=== PATIENT | male | born 1980 | race Caucasian/White ===

== ENCOUNTER → 2019-12-05 | Outpatient (CLI) | payer OTHER ==
--- NOTE | 2019-12-05 08:49 | CT ---
EXAMINATION TYPE: CT iac wo con, CT facial bones wo con DATE OF EXAM: 12/05/2019 COMPARISON: None HISTORY: bilateral hearing loss (accession [id number]), sinusitis (accession [id number]) CT DLP: 720.6mGycm Automated exposure control for dose reduction was used. Helical imaging through the facial bones and internal auditory canals, coronal reconstructions FINDINGS: Lack of intravenous contrast could compromise sensitivity. At the level of the internal aud itory canal, right cerebellar pontine angle, axial image 30 question some asymmetric increased attenu ation. The external auditory canals are patent bilaterally. Mastoid air cells show no evidence of ab normal opacification bilaterally. The middle ear ossicles are symmetric and unremarkable. There is no evidence of suspicious surrounding soft tissue density to suggest cholesteatoma. The scutum is pr eserved bilaterally. The cochlea and the semicircular canals are symmetric and unremarkable. Vestib ular aqueduct and internal carotid canal appear unremarkable. Temporomandibular joints are maintaine d bilaterally. The inferior most portion of the right maxillary sinus shows a small amount of inflammatory change an d there is mucoperiosteal thickening present in the right maxillary sinus,, there may be a small muco us retention cyst. Dental amalgam causes streak artifact over portions of the exam. Orbits show symme tric appearance. IMPRESSION: Contrast-enhanced exam, MRI of the internal auditory canals is more sensitive to assess f or possible mass in the internal auditory canal on the right. Mild sinus disease.
== END | disposition home or self-care (01) ==
LOC: RADCTMAIN 07:00
PROVIDERS: ATTEND Otolaryngology Facial Plastic Surgery
DX: J32.9 Chronic sinusitis, unspecified (principal); H91.93 Unspecified hearing loss, bilateral
CPT/HCPCS: 70480; 70486

== ENCOUNTER → 2022-05-24 | Outpatient (CLI) | payer OTHER ==
--- NOTE | 2022-05-25 03:02 | MR ---
EXAMINATION TYPE: MR wrist LT wo con DATE OF EXAM: 05/24/2022 COMPARISON: None HISTORY: Left wrist pain near volar unlar styloid. Multiplanar multiecho imaging of the left wrist performed with no contrast. There is some increased joint fluid in the carpus. There is mild narrowing of the radiocarpal joint s pace. The carpal bones are intact. No evidence of avascular necrosis. The triangular cartilage appear s intact. The flexor and extensor tendons appear intact. The radial and ulnar collateral ligaments ap pear intact. IMPRESSION: There is some increased carpal joint fluid and consistent with some nonspecific synovitis. No fractur e seen. No evidence of ligament tear.
== END | disposition home or self-care (01) ==
LOC: RADMRIMAIN 07:30
PROVIDERS: ATTEND Internal Medicine Rheumatology
DX: M25.532 Pain in left wrist (principal); M25.531 Pain in right wrist

== ENCOUNTER → 2022-06-24 | Outpatient (CLI) | payer OTHER ==
[2022-06-25 06:10] LABS: Gliadin AB IgA, Deaminated NEGATIVE (NEGATIVE); Gliadin AB IgA, Unit 0.3 U/mL; Gliadin AB IgG, Deaminated NEGATIVE (NEGATIVE); Gliadin AB IgG, Unit <0.4 U/mL
[2022-06-25 08:32] LABS: Lyme IgG/IgM 0.54 Index
== END | disposition home or self-care (01) ==
LOC: LABWHC1 10:47
PROVIDERS: ATTEND Family Medicine
DX: Z77.29 Contact with and (suspected) exposure to other hazardous substances (principal); M06.9 Rheumatoid arthritis, unspecified
CPT/HCPCS: 36415; 82040; 82530; 82784; 83090; 83516; 84270; 84403; 86618

== ENCOUNTER → 2022-06-28 | Outpatient (CLI) | payer OTHER | END | disposition home or self-care (01) | LOC: LABWHC1 11:07 | PROVIDERS: ATTEND Family Medicine | DX: Z77.29 Contact with and (suspected) exposure to other hazardous substances (principal); M06.9 Rheumatoid arthritis, unspecified | CPT/HCPCS: 36415; 81291; 82533; 82626; 82955; 86001 ==